=== PATIENT | female | born 1955 ===

== ENCOUNTER → 2021-08-14 09:56 | Outpatient (BNVA) | payer MEDICARE, BC, SELFPAY | PROVIDERS: PCP Internal Medicine; Visit Provider Hospitalist | DX: G47.33 Obstructive sleep apnea (adult) (pediatric) (principal); Z99.89 Dependence on other enabling machines and devices | CPT/HCPCS: 99202 ==

== ENCOUNTER → 2021-08-27 14:34 | Outpatient (REF) | payer MEDICARE, BC, SELFPAY | LOC: HO.SL 14:34 | PROVIDERS: PCP Internal Medicine; Visit Provider Hospitalist | DX: G47.33 Obstructive sleep apnea (adult) (pediatric) (principal); Z99.89 Dependence on other enabling machines and devices | CPT/HCPCS: 95806 ==

== ENCOUNTER 2022-12-02 14:21 | Outpatient (AMB) | payer MEDICARE, BC, SELFPAY ==
[2022-12-02 14:27] VITALS: BP 122/70; PULSE 73; O2SAT 97; BMI 35.7
--- NOTE | 2022-12-02 14:27 | MHC.OFFVIS ---
Intake Vital Signs 12/02/22 14:27 Height 5 ft 1 in Weight 189 lb BMI 35.7 BP 122/70 Blood Pressure Location Lt brachial Position Sitting Pulse 73 Pulse Source Pulse Oximeter Pulse Oximetry (%) 97 Oxygen Delivery Method Room Air Intake Visit Reasons: Obstructive sleep apnea [employer] Director Required: No Allergies No Known Allergies Allergy (Verified 12/02/22 14:30) HPI HPI Comments History of Present Illness Details The patient is a 66-year-old woman with a known history of obstructive sleep apnea for many years. she has been very compliant with her CPAP machine. The CPAP therapy has been very effective beneficial for her. she does use nasal pillows. She does not like the mask that she has because of marked her face. We did consider different options in view of her concern. I do believe that the nasal N20 mask may have a way to avoid too many grey on the face. In the meantime the patient does have significant cardiovascular risk factors including diabetes and hypertension and hypercholesterolemia. Therefore it is vital for her to use her CPAP machine. I did download the data in appears that she does use it for more than 6 hours a night. Her AHI is down to 1. The current APAP is working well for her and she needs an average pressure of 13-14 cm of pressure to maintain her airways patent. The patient has not gotten supplies now couple years. She has still been using the same equipment. She does try to keep it is clean as possible but at this point patient does need to change her mask and tubing and all the other parts of her machine. The machine is about 8 years old but is still appears to be in good working condition. Therefore she does not need a replacement at this time. The only way for her to get supplies at this point will be to have a repeat sleep study. I will have her undergo a home sleep study on the night that she does not use her CPAP. She does struggle when she is off the CPAP but she understands that in order to get her reactivated with a [employer] company we do the repeat the study. Otherwise she is without any other complaints. Denies any shortness breath or any cough. Denies any nasal congestion. 12/02/2022 the patient is here for a pulmonary follow-up visit. The patient overall is doing well. She is tolerating her CPAP very well. The CPAP therapy has been affecting beneficial. She does use it every night for more than 4 hours a night. The last time we checked the AHI was around 1 or less. She does use a nasal mask. She does not use any distilled water or any water at all. Denies any dry mouth which is reassuring. I did advise her for the veneer drier feeder months like winter she could consider adding distilled water if she starts getting dryness. respiratory status the patient is doing well. Denies any other respiratory complaints. She will continue to get supplies from her [employer] company on a regular basis. otherwise the patient will follow-up in a year's time or sooner if any other new issues arise. [facility] Social History (Updated 08/14/21 @ 11:12 by ALESSANDRA Moncada) Patient Tobacco Use Status: Never used Tobacco Review of Systems Const Denies daytime sleepiness and Denies difficulty sleeping Eyes Denies change in vision ENT Denies change in voice and Denies nasal discharge Card Denies chest pain and Denies dyspnea on exertion Resp Denies cough and Denies dyspnea on exertion GI Reports no additional complaints Musc Reports no additional complaints Skin/Breast Denies rash Neuro Reports no additional complaints Physical Exam Vital Signs: Last Vital Signs Pulse 73 12/02/22 14:27 BP 122/70 12/02/22 14:27 Pulse Ox 97 12/02/22 14:27 Oxygen Delivery Method Room Air 12/02/22 14:27 BMI result Body Mass Index 35.7 Const General: comfortable and alert HEENT Head: Yes normal to inspection Eyes General: appearance normal, both eyes and all related structures Neck Neck: Yes normal visual inspection and Yes supple Chest Chest palpation & inspection: normal inspection of the chest Resp Effort & Inspection: normal respiratory effort Auscultation: clear to auscultation bilaterally Cardio Rate: regular rate Rhythm: regular rhythm Heart sounds: S1 normal heart sound present and S2 normal heart sound present Skin General skin exam: no rashes or lesions noted Extrem General: Yes no clubbing, cyanosis or edema Assessment & Plan Assessment & Plan (1) ASIA on CPAP: Code(s): G47.33 - Obstructive sleep apnea (adult) (pediatric); Z99.89 - Dependence on other enabling machines and devices Plan Continue using APAP N20 small follow-up in 12-15 months Coding Level of Care Code Est Pt Level 3 (19102) Diagnoses ASIA on CPAP G47.33; Z99.89 Time Spent (min) 14
== END 2022-12-02 14:59 | disposition home or self-care (01) ==
PROVIDERS: PCP Internal Medicine; Visit Provider Hospitalist
DX: G47.33 Obstructive sleep apnea (adult) (pediatric) (principal); Z99.89 Dependence on other enabling machines and devices
CPT/HCPCS: 99213

== ENCOUNTER → 2022-12-02 14:21 | Outpatient (BNVA) | payer MEDICARE, BC, SELFPAY | PROVIDERS: PCP Internal Medicine; Visit Provider Hospitalist | DX: G47.33 Obstructive sleep apnea (adult) (pediatric) (principal); Z99.89 Dependence on other enabling machines and devices | CPT/HCPCS: 99212 ==